=== PATIENT | female | born 1985 | race Caucasian/White ===

== ENCOUNTER 2022-10-14 15:20 | Inpatient (IN) | payer BC ==
[~2022-10-14 15:20] MED LIST: BUTORPHANOL TARTRATE 2 MG/ML VIAL IVPB ONE; ELECTROLYTE-148 SOLN 1,000 ML IV SCH; PROMETHAZINE HCL 25 MG/1 ML VIAL IVPB ONE
[2022-10-14] MEDS ORDERED: AMPICILLIN - 2 GM in SODIUM CHLORIDE 100 ML IVPB ONE (15:30)
[2022-10-14] MEDS ORDERED: AMPICILLIN SODIUM 2 GM VIAL ONE (15:40)
[2022-10-14] MEDS ORDERED: BUTORPHANOL TARTRATE 2 MG/ML VIAL ONE (15:50)
[2022-10-14] MEDS ORDERED: PROMETHAZINE HCL 25 MG/1 ML VIAL ONE (15:50)
[2022-10-14 16:15] VITALS: BMI 33.5
[2022-10-14] MEDS ORDERED: OXYTOCIN 20 UNITS in 0.9% NS 20 UNIT/1,000 ML INFUS.BAG IV ONE (16:52)
[2022-10-14 16:56] LABS: BASO % 0.3 % (0-2.0); EOS % 0.5 % (0-4.5); HEMATOCRIT 38.5 % (32.4-45.2); HEMOGLOBIN 12.7 GM/dL (10.7-15.3); LYMPH % 12.4 % (8-40); MCH 24.1 pg (25.7-33.7); MCHC 33.1 g/dl (32.0-36.0); MEAN CELL VOLUME 72.9 fl (80-96); MEAN PLT VOLUME 9.4 fl (7.5-11.1); MONO % 5.1 % (3.8-10.2); NEUT % 81.7 % (42.8-82.8); PLATELET COUNT 205 10^3/uL (134-434); RBC 5.28 M/mm3 (3.60-5.2); RDW 15.9 % (11.6-15.6)
[2022-10-14 17:03] LABS: INR 0.9 (0.83-1.09); PROTHROMBIN TIME (PATIENT) 10.4 SEC (9.7-13.0)
[2022-10-14 17:06] LABS: ACTIVATED PTT 27.1 SECONDS (25.2-36.5)
[2022-10-14 17:19] LABS: CREATININE 0.4 mg/dL (0.55-1.3)
[2022-10-14] MEDS ORDERED: OXYTOCIN 30 UNITS in 0.9% NS 30 UNIT/500 ML INFUS.BAG IVPB ONE (17:19)
[2022-10-14] MEDS ORDERED: BENZOCAINE 20% 57 GM BOTTLE TP PRN (17:52)
[2022-10-14] MEDS ORDERED: oxyCODONE HCL 5 MG TABLET PO PRN (17:52)
[2022-10-14] MEDS ORDERED: BENZOCAINE 28 GM HEMORRHOIDAL OINTMENT TP PRN (17:52)
[2022-10-14] MEDS ORDERED: ACETAMINOPHEN 325 MG TABLET (FP) PO PRN (17:52)
[2022-10-14] MEDS ORDERED: WITCH HAZEL 50% (TUCKS) 40 PAD/JAR PAD TP PRN (17:52)
[2022-10-14] MEDS ORDERED: BISACODYL 10 MG SUPP.RECT RC PRN (17:52)
[2022-10-14] MEDS ORDERED: METHYLERGONOVINE MALEATE 0.2 MG/1 ML AMP IM PRN (17:52)
[2022-10-14] MEDS ORDERED: OXYTOCIN 20 UNITS in 0.9% NS 20 UNIT/1,000 ML INFUS.BAG IV SCH (18:00)
[2022-10-14] MEDS ORDERED: IBUPROFEN 600 MG TABLET (FP) PO ONE (19:00)
[2022-10-14] MEDS: IBUPROFEN 600 MG TABLET (FP) PO PRN ×2 (19:02→23:45)
[2022-10-14] MEDS ORDERED: ACETAMINOPHEN 325 MG TABLET (FP) ONE (19:18)
[2022-10-14] MEDS ORDERED: AMPICILLIN - 1 GM in SODIUM CHLORIDE 100 ML IVPB SCH (19:30)
[2022-10-15 08:23] LABS: BASO % 0.3 % (0-2.0); EOS % 0.7 % (0-4.5); HEMATOCRIT 25.5 % (32.4-45.2); HEMOGLOBIN 8.5 GM/dL (10.7-15.3); MCH 24.6 pg (25.7-33.7); MCHC 33.6 g/dl (32.0-36.0); MEAN CELL VOLUME 73.2 fl (80-96); MEAN PLT VOLUME 9.6 fl (7.5-11.1); MONO % 8.3 % (3.8-10.2); NEUT % 69.7 % (42.8-82.8); PLATELET COUNT 156 10^3/uL (134-434); RBC 3.48 M/mm3 (3.60-5.2); RDW 15.9 % (11.6-15.6); WHITE BLOOD COUNT 14.5 K/mm3 (4.0-10.0)
[2022-10-15] MEDS: IBUPROFEN 600 MG TABLET (FP) PO PRN (08:24)
[2022-10-15 21:54] VITALS: RESP 18
[2022-10-15] MEDS ORDERED: SENNOSIDES/DOCUSATE COMBO (SENNA PLUS) TABLET (UD) PO PRN (22:00)
[2022-10-16 08:11] VITALS: BP 97/66; PULSE 82; TEMP 98
== END 2022-10-16 13:18 | disposition home or self-care (01) | DRG 807 ==
LOC: JLDR 15:20 → J3W 21:30
PROVIDERS: ADMIT Obstetrics & Gynecology; ATTEND Obstetrics & Gynecology
PROC: 10E0XZZ Delivery of Products of Conception, External Approach (ICD-10-PCS; principal; 2022-10-14)
PROC: 0HQ9XZZ Repair Perineum Skin, External Approach (ICD-10-PCS; 2022-10-14)
DX: O99.824 Streptococcus B carrier state complicating childbirth (principal); Z37.0 Single live birth; O70.0 First degree perineal laceration during delivery; Z3A.39 39 weeks gestation of pregnancy
CPT/HCPCS: 36415; 80048; 85025; 85610; 85730; 86780; 86850; 86900; 86901; C9803-CS; U0003; U0005

== ENCOUNTER 2022-11-25 04:02 | Day surgery (SDC) | payer BC, OTHER ==
[2022-11-19 16:30] VITALS: BMI 23.1
[2022-11-25] MEDS ORDERED: PROPOFOL 20 ML ONE (13:53)
[2022-11-25] MEDS ORDERED: SUCCINYLCHOLINE CHLORIDE 200 MG/10 ML SYRINGE ONE (13:55)
[2022-11-25] MEDS ORDERED: ROCURONIUM BROMIDE 50 MG/5 ML SYRINGE ONE (14:03)
[2022-11-25] MEDS ORDERED: KETOROLAC TROMETHAMINE 30 MG/1 ML VIAL ONE (14:11)
[2022-11-25] MEDS ORDERED: DEXAMETHASONE SOD PHOSPHATE 4 MG/1 ML VIAL ONE (14:11)
[2022-11-25] MEDS ORDERED: MIDAZOLAM HCL 2 MG/2 ML SINGLE DOSE VIAL ONE (14:11)
[2022-11-25] MEDS ORDERED: ONDANSETRON 4 MG/2 ML VIAL ONE (14:11)
[2022-11-25] MEDS ORDERED: GLYCOPYRROLATE 0.2 MG/1 ML VIAL ONE ×2 (14:11)
[2022-11-25] MEDS ORDERED: NEOSTIGMINE METHYLSULFATE 0.5 MG/1 ML - 10 ML MDV ONE (14:11)
[2022-11-25] MEDS ORDERED: oxyCODONE HCL 5 MG TABLET PO PRN ×2 (14:58→16:16)
[2022-11-25] MEDS ORDERED: ONDANSETRON 4 MG/2 ML VIAL IVPUSH PRN ×2 (14:58→16:16)
[2022-11-25] MEDS ORDERED: LACTATED RINGERS SOLUTION 1,000 ML IV SCH (15:15)
[2022-11-25] MEDS ORDERED: IBUPROFEN 600 MG TABLET (FP) PO PRN (16:16)
[2022-11-25] MEDS ORDERED: IBUPROFEN 800 MG/8 ML IJ IVPB PRN (16:16)
[2022-11-25] MEDS ORDERED: ELECTROLYTE-148 SOLN 1,000 ML IV SCH (16:30)
[2022-11-25 16:41] VITALS: TEMP 97.5
[2022-11-25] MEDS ORDERED: oxyCODONE HCL 10 MG SUSTAINED ACTING TABLET ONE (16:54)
[2022-11-25 18:37] VITALS: BP 123/74; PULSE 70; RESP 20
== END 2022-11-25 18:15 | disposition home or self-care (01) ==
LOC: JASU-SURG 04:02
PROVIDERS: ATTEND Obstetrics & Gynecology
PROC: 0UT74ZZ Resection of Bilateral Fallopian Tubes, Percutaneous Endoscopic Approach (ICD-10-PCS; principal; 2022-11-25 14:00)
DX: Z30.2 Encounter for sterilization (principal)
CPT/HCPCS: 88302-TC; 94760